=== PATIENT | female | born 2000 | race Caucasian/White ===

== ENCOUNTER 2019-05-26 17:46 | Emergency (ER) | payer OTHER ==
[2019-05-26 17:57] VITALS: BP 107/71; PULSE 81; TEMP 98; BMI 20.7
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
== END 2019-05-26 19:10 | disposition home or self-care (01) ==
LOC: JERFT 17:46 → JER 17:46 → JERFT 19:10
DX: S16.1XXA Strain of muscle, fascia and tendon at neck level, initial encounter (principal); S29.012A Strain of muscle and tendon of back wall of thorax, initial encounter; V49.49XA Driver injured in collision with other motor vehicles in traffic accident, initial encounter; Y92.414 Local residential or business street as the place of occurrence of the external cause; Y93.89 Activity, other specified; Y99.8 Other external cause status
CPT/HCPCS: 99281-25

== ENCOUNTER 2024-02-24 19:47 | Emergency (ER) | payer OTHER ==
[2024-02-24 19:51] VITALS: BP 90/60; PULSE 86; RESP 17; TEMP 97.8; BMI 24.4
[2024-02-24 21:56] LABS: BASO % 0.8 % (0-2.0); EOS % 1.9 % (0-4.5); HEMATOCRIT 29.3 % (32.4-45.2); HEMOGLOBIN 9.4 GM/dL (10.7-15.3); LYMPH % 18.3 % (8-40); MCH 23.2 pg (25.7-33.7); MEAN CELL VOLUME 72.6 fl (80-96); MEAN PLT VOLUME 8.4 fl (7.5-11.1); MONO % 4.9 % (3.8-10.2); NEUT % 74.1 % (42.8-82.8); RBC 4.03 M/mm3 (3.60-5.2); RDW 17.1 % (11.6-15.6); WHITE BLOOD COUNT 13.6 K/mm3 (4.0-10.0)
[2024-02-24 22:12] LABS: POTASSIUM 3.6 mmol/L (3.5-5.1)
[2024-02-24 22:14] LABS: BLOOD UREA NITROGEN 4.6 mg/dL (7-18); CALCIUM 9.2 mg/dL (8.5-10.1)
[2024-02-24 22:18] LABS: CREATININE 0.3 mg/dL (0.55-1.3)
[2024-02-24 22:19] LABS: BILIRUBIN,TOTAL 0.3 mg/dL (0.2-1); TOT PROT 7.2 g/dl (6.4-8.2)
[2024-02-24 22:46] LABS: EPI CELLS 28 /uL (0-25.1); HYALINE CASTS 1 /uL (0-3.1); URINE APPEARANCE CLEAR; URINE BACTERIA 2055 /uL (0-1359); URINE BILIRUBIN NEGATIVE (NEGATIVE); URINE COLOR YELLOW; URINE GLUCOSE (UA) NEGATIVE (NEGATIVE); URINE KETONE NEGATIVE (NEGATIVE); URINE LEUK ESTERASE TRACE (NEGATIVE); URINE NITRITE NEGATIVE (NEGATIVE); URINE PROTEIN NEGATIVE (NEGATIVE); URINE RBC 17 /uL (0-23.9); URINE UROBILINOGEN 0.2 mg/dL (0.2-1.0); URINE WBC 41 /uL (0-25.8)
[2024-02-24 23:00] LABS: PLATELET COUNT 277 10^3/uL (134-434)
== END 2024-02-24 23:30 | disposition home or self-care (01) ==
LOC: JER 19:47
DX: O20.9 Hemorrhage in early pregnancy, unspecified (principal); Z3A.17 17 weeks gestation of pregnancy
CPT/HCPCS: 36415; 76815-TC; 80053; 81003; 84702; 85025; 86850; 86900; 86901; 87086; 99284-25